=== PATIENT | male | born 1985 | race Caucasian/White ===

== ENCOUNTER 2019-06-20 20:21 | Emergency (ER) | payer OTHER ==
[2019-06-20] MEDS ORDERED: IBUPROFEN 400 MG TABLET (FP) PO ONE (20:31)
[2019-06-20] MEDS ORDERED: ACETAMINOPHEN 325 MG TABLET (FP) ONE (20:36)
--- NOTE | 2019-06-20 20:37 | PDOC ---
History of Present Illness - General Chief Complaint: Back Pain Stated Complaint: BACK PAIN Time Seen by Provider: 06/20/19 20:26 History Source: Patient - History of Present Illness Occurred: reports: this evening Pain Location: reports: back Past History - Past Medical History Allergies/Adverse Reactions: Allergies Allergy/AdvReac Type Severity Reaction Status Date / Time No Known Allergies Allergy Verified 12/28/15 09:25 Home Medications: Ambulatory Orders Cyclobenzaprine HCl [Flexeril -] 10 mg PO TID PRN #15 tablet 12/28/15 Cyclobenzaprine HCl [Flexeril 10 mg] 10 mg PO HS PRN #9 tablet 06/20/19 Ibuprofen [Motrin -] 800 mg PO Q6H #30 tablet 06/20/19 - Psycho Social/Smoking Cessation Hx Smoking History: Never smoked Have you smoked in the past 12 months: No Hx Alcohol Use: No Drug/Substance Use Hx: No Substance Use Type: None Review of Systems - Review of Systems Constitutional: No: Fever ABD/GI: No: Nausea, Vomiting, Abdominal cramping : No: Dysuria, Flank Pain, Hematuria Neurological: No: Numbness, Tingling, Weakness *Physical Exam - Physical Exam General Appearance: Yes: Appropriately Dressed. No: Apparent Distress HEENT: positive: Normal Voice Neck: positive: Supple Respiratory/Chest: negative: Respiratory Distress Gastrointestinal/Abdominal: positive: Soft. 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 No sensory changes, lower extremity weakness, saddle anesthesia or bowel or bladder incontinence. No history of chronic back pain. Has not taken anything for pain See exam M/l back strain in setting of heavy lifting No red flags at this time Pain meds in ER Dc w/ pain control To f/u with PMD as needed 06/20/19 20:41 Discharge - Discharge Information Problems reviewed: Yes Clinical Impression/Diagnosis: Low back pain Qualifiers: Chronicity: acute Back pain laterality: right Sciatica presence: without sciatica Qualified Code(s): M54.5 - Low back pain Condition: Good Disposition: HOME - Additional Discharge Information Prescriptions: Cyclobenzaprine HCl [Flexeril 10 mg] 10 mg PO HS PRN #9 tablet PRN Reason: Back Pain Ibuprofen [Motrin -] 800 mg PO Q6H #30 tablet - Follow up/Referral - Patient Discharge Instructions Patient Printed Discharge Instructions: DI for Back Strain or Sprain Additional Instructions: Take medications as directed If pain persists, please follow-up with your PMD - Post Discharge Activity Work/Back to School Note: Back to Work
[2019-06-20 20:51] VITALS: BP 145/75; PULSE 88; TEMP 98.7; BMI 26.4
== END 2019-06-20 20:51 | disposition home or self-care (01) ==
LOC: JERFT 20:21
DX: M54.5 Low back pain (principal)
CPT/HCPCS: 99281-25

== ENCOUNTER 2021-06-12 20:44 | Emergency (ER) | payer OTHER ==
[2021-06-12 20:55] VITALS: BP 144/87; PULSE 66; TEMP 98.2; BMI 29.0
[2021-06-12] MEDS ORDERED: IBUPROFEN 400 MG TABLET (FP) PO ONE ×2 (22:06→22:14)
== END 2021-06-12 22:44 | disposition home or self-care (01) ==
LOC: JER 20:44
DX: M79.671 Pain in right foot (principal)
CPT/HCPCS: 73610-TC-RT-FY; 73630-TC-RT-FY; 99283-25

== ENCOUNTER 2022-08-31 15:25 | Emergency (ER) | payer OTHER ==
[2022-08-31 15:32] VITALS: BP 135/83; PULSE 69; RESP 18; TEMP 97.9; BMI 29.7
[2022-08-31] MEDS ORDERED: IBUPROFEN 600 MG TABLET (FP) PO ONE ×3 (15:45→17:51)
== END 2022-08-31 16:08 | disposition home or self-care (01) ==
LOC: JERFT 15:25
DX: S39.012A Strain of muscle, fascia and tendon of lower back, initial encounter (principal); X50.0XXA Overexertion from strenuous movement or load, initial encounter; Y99.0 Civilian activity done for income or pay
CPT/HCPCS: 99282-25

== ENCOUNTER 2023-02-07 05:09 | Day surgery (SDC) | payer OTHER ==
[2023-02-03 11:51] VITALS: BMI 30.3
[~2023-02-07 05:09] MED LIST: BUPIVACAINE HCL/PF 0.75% 10 ML VIAL NR ONE
[2023-02-07 07:10] VITALS: RESP 20
[2023-02-07] MEDS ORDERED: BUPIVACAINE HCL/PF 0.75% 10 ML VIAL ONE (07:32)
[2023-02-07] MEDS ORDERED: LIDOCAINE HCL/PF 1% SDV 5ML VIAL ONE (07:33)
[2023-02-07] MEDS ORDERED: ACETAMINOPHEN 500 MG TABLET (FP) PO PRN (08:55)
[2023-02-07] MEDS ORDERED: LIDOCAINE HCL 1% PRESERVATIVE FREE - 30ML VIAL IJ ONE (09:06)
[2023-02-07] MEDS ORDERED: BUPIVACAINE HCL/PF 0.75% 10 ML VIAL NR ONE (09:10)
[2023-02-07 13:30] VITALS: BP 125/80; PULSE 70; TEMP 97.8
== END 2023-02-07 09:40 | disposition home or self-care (01) ==
LOC: JASU-SURG 05:09
PROVIDERS: ATTEND Pain Medicine Pain Medicine
PROC: 3E0T33Z Introduction of Anti-inflammatory into Peripheral Nerves and Plexi, Percutaneous Approach (ICD-10-PCS; 2023-02-07)
PROC: 3E0T3BZ Introduction of Anesthetic Agent into Peripheral Nerves and Plexi, Percutaneous Approach (ICD-10-PCS; principal; 2023-02-07 08:45)
DX: M47.816 Spondylosis without myelopathy or radiculopathy, lumbar region (principal)
CPT/HCPCS: 76000-TC-FY

== ENCOUNTER 2023-03-07 04:17 | Day surgery (SDC) | payer OTHER ==
[2023-03-06 09:28] VITALS: BMI 30.3
[2023-03-07] MEDS ORDERED: BUPIVACAINE HCL/PF 0.75% 10 ML VIAL ONE (07:46)
[2023-03-07] MEDS ORDERED: LIDOCAINE HCL/PF 1% SDV 5ML VIAL ONE (07:46)
[2023-03-07] MEDS ORDERED: DEXAMETHASONE SOD PHOSPHATE 10 MG/1 ML VIAL ONE (07:47)
[2023-03-07 07:59] VITALS: RESP 18
[2023-03-07] MEDS ORDERED: LIDOCAINE 1% P/F 10 MG/ML VIAL INF ONE (08:32)
[2023-03-07] MEDS ORDERED: BUPIVACAINE HCL/PF 0.75% 10 ML VIAL NR ONE (08:33)
[2023-03-07 10:32] VITALS: BP 130/78; PULSE 70; TEMP 98.2
[2023-03-07] MEDS ORDERED: ACETAMINOPHEN 500 MG TABLET (FP) PO PRN (14:57)
== END 2023-03-07 10:32 | disposition home or self-care (01) ==
LOC: JASU-SURG 04:17
PROVIDERS: ATTEND Pain Medicine Pain Medicine
PROC: 3E0T3BZ Introduction of Anesthetic Agent into Peripheral Nerves and Plexi, Percutaneous Approach (ICD-10-PCS; principal; 2023-03-07 09:30)
DX: M47.816 Spondylosis without myelopathy or radiculopathy, lumbar region (principal)
CPT/HCPCS: 76000-TC-FY; J1100

== ENCOUNTER 2023-04-08 03:56 | Day surgery (SDC) | payer OTHER ==
[2023-04-07 11:23] VITALS: BMI 29.7
[2023-04-08] MEDS ORDERED: DEXAMETHASONE SOD PHOSPHATE 10 MG/1 ML VIAL ONE (07:21)
[2023-04-08] MEDS ORDERED: DEXAMETHASONE SOD PHOSPHATE 4 MG/1 ML VIAL ONE (07:21)
[2023-04-08] MEDS ORDERED: LIDOCAINE HCL/PF 1% SDV 5ML VIAL ONE (07:21)
[2023-04-08] MEDS ORDERED: LIDOCAINE 1% P/F 10 MG/ML VIAL INF ONE (08:40)
[2023-04-08] MEDS ORDERED: IOHEXOL 180 MG/1 ML ML IJ ONE (08:40)
[2023-04-08] MEDS ORDERED: DEXAMETHASONE SOD PHOSPHATE 10 MG/1 ML VIAL IVPUSH ONE (08:40)
[2023-04-08 09:14] VITALS: RESP 20; TEMP 97.8
[2023-04-08 09:43] VITALS: BP 120/70; PULSE 70
[2023-04-08] MEDS ORDERED: ACETAMINOPHEN 500 MG TABLET (FP) PO PRN (12:11)
== END 2023-04-08 09:47 | disposition home or self-care (01) ==
LOC: JASU-SURG 03:56
PROVIDERS: ATTEND Pain Medicine Pain Medicine
PROC: 3E0R3BZ Introduction of Anesthetic Agent into Spinal Canal, Percutaneous Approach (ICD-10-PCS; 2023-04-08)
PROC: 00HU33Z Insertion of Infusion Device into Spinal Canal, Percutaneous Approach (ICD-10-PCS; 2023-04-08)
PROC: 3E0R33Z Introduction of Anti-inflammatory into Spinal Canal, Percutaneous Approach (ICD-10-PCS; principal; 2023-04-08 08:30)
DX: M54.16 Radiculopathy, lumbar region (principal); M48.061 Spinal stenosis, lumbar region without neurogenic claudication
CPT/HCPCS: 76000-TC-FY; J1100

== ENCOUNTER 2024-03-29 19:35 | Emergency (ER) | payer OTHER ==
[2024-03-29 19:57] VITALS: BP 145/89; PULSE 76; RESP 20; TEMP 98.1; BMI 29.7
[2024-03-29] MEDS ORDERED: METHOCARBAMOL 500 MG TABLET ONE (21:26)
[2024-03-29] MEDS ORDERED: KETOROLAC TROMETHAMINE 30 MG/1 ML VIAL ONE (21:26)
[2024-03-29] MEDS ORDERED: ACETAMINOPHEN 500 MG TABLET (FP) ONE (21:26)
[2024-03-29] MEDS: METHOCARBAMOL 500 MG TABLET PO ONE (21:30)
[2024-03-29] MEDS: ACETAMINOPHEN 500 MG TABLET (FP) PO ONE (21:31)
[2024-03-29] MEDS: KETOROLAC TROMETHAMINE 30 MG/1 ML VIAL IM ONE (21:31)
== END 2024-03-29 21:43 | disposition home or self-care (01) ==
LOC: JERFT 19:35
PROC: 3E0233Z Introduction of Anti-inflammatory into Muscle, Percutaneous Approach (ICD-10-PCS; principal; 2024-03-29)
DX: M54.50 Low back pain, unspecified (principal)
CPT/HCPCS: 99284-25